=== PATIENT | male | born 1960 | race Caucasian/White ===

== ENCOUNTER 2022-11-27 14:34 | Emergency (ER) | payer OTHER ==
[~2022-11-27] VITALS: Ht 170.2 cm; Wt 86.0 kg
[2022-11-27 14:53] VITALS: BP 147/85; PULSE 70; RESP 16; O2SAT 97
== END 2022-11-27 15:14 | disposition left against medical advice (07) ==
LOC: EDBD 14:34 → ER 14:34
DX: R07.89 Other chest pain (principal); R51.9 Headache, unspecified; Z53.21 Procedure and treatment not carried out due to patient leaving prior to being seen by health care provider
CPT/HCPCS: 71045; 93005

== ENCOUNTER 2024-08-10 23:57 | Emergency (ER) | payer OTHER ==
[~2024-08-10] VITALS: Ht 172.7 cm; Wt 83.7 kg
[2024-08-11 00:17] VITALS: PULSE 62; RESP 18; O2SAT 97
--- NOTE | 2024-08-11 00:51 | ED.PDOC ---
History of Present Illness HPI Comments 63 y/o M presents with 2x day history of constipation. Patient endorses on having associated pain when attempting to defecate, due to history of hemorrhoids. No significant GI history or pain medication use endorsed. Patient denies having any abdominal pain, nausea, vomiting, fever, chills, or further associated symptoms. Vital signs were stable on arrival. Chief Complaint: Constipation Time Seen by MD: 00:15 Reviewed Notes: Nurses Notes, Medications, Allergies Allergies: Coded Allergies: NO KNOWN ALLERGIES (Unverified , 11/27/22) Information Source: Patient Mode of Arrival: Ambulatory Severity: Moderate Timing: Days Duration: Since onset Prehospital treatment: None Past Medical History PAST MEDICAL HISTORY: Denies Past Medical History (Other): hemorrhoids Surgical History: Denies all surgeries Family History Family History: Unknown Social History Smoker: Non-Smoker Alcohol: Denies ETOH Use Drugs: Denies Drug Use Lives In: Home Constitutional: denies: chills, diaphoresis, fatigue, fever, malaise, sweats, weakness, others EENTM: denies: blurred vision, double vision, ear bleeding, ear discharge, ear drainage, ear pain, ear ringing, eye pain, eye redness, hearing loss, mouth pain, mouth swelling, nasal discharge, nose bleeding, nose congestion, nose pain, photophobia, tearing, throat pain, throat swelling, voice changes, others Respiratory: denies: cough, hemoptysis, orthopnea, SOB at rest, shortness of breath, SOB with excertion, stridor, wheezing, others Cardiovascular: denies: chest pain, dizzy spells, diaphoresis, Dyspnea on exertion, edema, irregular heart beat, left arm pain, lightheadedness, palpitations, PND, syncope, others Gastrointestinal: reports: abdominal pain, constipated, rectal pain; denies: abdomen distended, blood streaked bowels, diarrhea, dysphagia, difficulty swallowing, hematemesis, melena, nausea, poor appetite, poor fluid intake, rectal bleeding, vomiting, others Genitourinary: denies: burning, dysuria, flank pain, frequency, hematuria, incontinence, penile discharge, penile sore, pain, testicle pain, testicle swelling, urgency, others Neurological: denies: dizziness, fainting, headache, left sided numbness, left sided weakness, numbness, paresthesia, pre-existing deficit, right sided numbness, right sided weakness, seizure, speech problems, tingling, tremors, weakness, others Musculoskeletal: denies: back pain, gout, joint pain, joint swelling, muscle pain, muscle stiffness, neck pain, others Integumetry: denies: bruises, change in color, change in hair/nails, dryness, laceration, lesions, lumps, rash, wounds, others Allergic/Immunocompromised: denies: Difficulty Healing, Frequent Infections, Hives, Itching, others Hematologic/Lymphatic: denies: anemia, blood clots, easy bleeding, easy bru ising, swollen glands, others Endocrine: denies: excessive hunger, excessive sweating, excessive thirst, e xcessive urination, flushing, intolerance to cold, intolerance to heat, unexplained weight gain, unexplained weight loss, others Psychiatric: denies: anxiety, bipolar disorder, depression, hopeless, panic disorder, schizophrenia, sleepless, suicidal, others All Other Systems: Reviewed and Negative (As per HPI) Physical Exam General Appearance: Moderate Distress (Due to constipation and rectal pain concerns.), Normal HEENT: Normal ENT Inspection, Pharynx Normal, TMs Normal Neck: Full Range of Motion, Non-Tender, Normal, Normal Inspection Respiratory: Chest Non-Tender, Lungs Clear, No Accessory Muscle Use, No Respiratory Distress, Normal Breath Sounds Cardiovascular: No Edema, No JVD, No Murmur, No Gallop, Normal Peripheral Pulses, Regular Rate/Rhythm Breast Exam: Deferred Gastrointestinal: Other (Diffuse nonspecific tenderness to palpation throughout abdomen. No pulsatile masses. Abdomen was reasonably soft.) Genitalia: Deferred Pelvic: Deferred Rectal: Deferred Extremities: No calf tenderness, Normal capillary refill, Normal inspection, Normal range of motion, Non-tender, No pedal edema Neurologic: Alert, No Motor Deficits, Normal Affect, Normal Mood, No Sensory Deficits Cerebellar Function: Normal Reflexes: Normal Skin: Dry, Normal Color, Warm Lymphatic: No Adenopathy Was a procedure done? Was a procedure done?: No Differential Dx Considerations may include: constipation, bowel obstruction, hemorrhoids, among others X-Ray, Labs, Meds, VS Vital Signs Date Time Temp Pulse Resp B/P (MAP) Pulse Ox O2 Delivery O2 Flow Rate FiO2 08/11/24 00:17 98.6 62 18 152/77 (102) 97 98.6 08/11/24 00:17 98.6 62 18 152/77 (102) 97 98.6 08/11/24 00:17 62 18 97 Room Air* 0 21 X-Ray, Labs, Meds, VS Comment All studies performed the ED were evaluated by me personally. Imaging studies were relatively unremarkable for any impaction or significant constipation concerns. Patient will be assisted with passing stool and then sent home with a additional medications for support. Time of 1ST Reevaluation: Reevaluation 1ST: Improved Consultation: PCP Patient Education/Counseling: Diagnosis, Treatment, Need For Follow Up Family Education/Counseling: Diagnosis, Treatment, No Family Present Departure 1 Departure Time of Disposition: : Impression: Primary Impression: Constipation Additional Impression: Hemorrhoids Disposition: HOME / SELF CARE / HOMELESS Condition: Stable Additional Instructions: Advised patient utilize medication as needed and until a healthy bowel pattern is established. Patient should follow up with the primary care provider for discussions related to ongoing hemorrhoid concerns. e-Prescriptions Phenylephrine-Shark Liver Oil- (Hemorrhoidal Suppositorie 0.25-3-85.5 %) 1 Sup Sup 1 SUP NV BID, #20 SUPP Prov: EDUARDO SAM PAC 08/11/24 Lactulose (Lactulose) 10 Gm/15 Ml Tiera 10 GM PO TIDPRN PRN, #150 ML Prov: EDUARDO SAM PAC 08/11/24 Discharged With: Self, Friend Critical Care Note Critical Care Time?: No Stability Stability form required: No Heart Score Heart Score: Heart Score Response (Comments) Value History N/A 0 EKG N/A 0 Age N/A 0 Risk Factors N/A 0 Troponin N/A 0 Total 0 I personally scribed for EDUARDO SAM PAC ([email or web address]) on 08/11/24 at 00:51. Electronically submitted by Melquiades Canales ([email or web address]). I personally scribed for EDUARDO SAM PAC ([email or web address]) on 08/11/24 at 00:53. Electronically submitted by Melquiades Canales ([email or web address]). I personally scribed for EDUARDO SAM B PAC ([email or web address]) on 08/11/24 at 01:21. Electronically submitted by Melquiades Canales ([email or web address]). EDUARDO SAM PAC Aug 11, 2024 00:51
--- NOTE | 2024-08-11 01:16 | DVH ---
Procedure: XY KUB ABDOMEN SINGLE VIEW Exam Date: 08/11/2024 12:41 AM History: Constipation Comparison Study: None Technique: Single frontal view of the abdomen Findings/ IMPRESSION: Nonobstructive bowel-gas pattern. Lung bases are clear. No acute osseous abnormalities. No radiopa que foreign objects.
[2024-08-11] MEDS ORDERED: PHENSUP38 PR (01:30)
[2024-08-11] MEDS ORDERED: LACT10SO3 PO (01:30)
[2024-08-11 02:19] VITALS: BP 157/85; PULSE 61; RESP 18; TEMP 97.7; O2SAT 96
[2024-08-11] MEDS: LACTULOSE 20Gm/30ML SOLN PO ONE (04:16)
[2024-08-11] MEDS: FLEET ENEMA(ADULT) 135 ML PR ONE (04:16)
== END 2024-08-11 04:25 | disposition home or self-care (01) ==
LOC: ER 23:57
DX: K59.00 Constipation, unspecified (principal); K64.9 Unspecified hemorrhoids
CPT/HCPCS: 74018